=== PATIENT | male | born 1945 | race Caucasian/White ===

== ENCOUNTER 2023-02-09 06:21 | Emergency (ER) | payer OTHER ==
--- OUTSIDE RECORDS SUMMARY | 2023-02-09 15:08 | XMS REPORT | Continuity of Care Document ---
:1945 Author Organization [facility] Address [address] [place] [address] Care Team Providers Name Role Phone PCP, PATIENT DOES NOT HAVE A Primary Care Physician Unavaila CHANDAN Wilde Attending Clinician Unavailable Bernice Beckford RN Attending Clinician Unavailable Only, Ang Db Test Attending Clinician Unavailable Renee Olvera Attending Clinician RENEE MCKEE Attending Clinician Unavailable Jose Francisco Mae RN Attending Clinician Unavailable Terrie Early Attending Clinician TERRIE THOMSON Attending Clinician Unavailable Pcp, Patient Does Not Have A Attending Clinician [phone] Kain Phillips MD Attending Clinician KAIN PHILLIPS Attending Clinician Unavailable Payers Payer Name Policy Type Policy Number Effective Date Expiration Date S yuliana [facility] [id number] [facility] MED [id number] 2021 ADVANTAGE 00:00:00 CHOICE PPO Problems Condition Condition Condition Status Onset Resolution Last Treating Co mments Source Name Details Category Date Date Treatment Clinician Date [id number] Dysuria Problem Active [facility] Allergies, Adverse Reactions, Alerts Allergy Allergy Status Severity Reaction(s) Onset Inactive Treating Comm ents Source Name Type Date Date Clinician NO KNOWN Drug Active [facility] Class [facility] Social History Social Habit Start Date Stop Date Quantity Comments Source Sex Assigned At Com mon [facility] History of Tobacco Use Co mmon [facility] Exposure to SARS-CoV-2 Not sure Un [facility] Smoking Status Start Date Stop Date Source Unknown if ever smoked [facility] Never Smoker Common [facility] Medications Ordered Filled Start Stop Current Ordering Indication Dosage Frequency Signature Comments Components Source Medication Medication Date Date Medication? Clinician (SIG) Name Name Lisinopril Lisinopril No 1{table QD Lisinopril 10 MG 10 MG t} 10 MG Vital Signs Vital Name Observation Time Observation Value Comments Source height 2022-03-19 17:15:00 71 [in_i] [facility] weight 2022-03-19 17:15:00 170 [lb_av] [facility] temperature 2022-03-19 17:15:00 98 [degF] [facility] bmi 2022-03-19 17:15:00 23.71 kg/m2 [facility] oximetry 2022-03-19 17:15:00 99 % [facility] respiratory rate 2022-03-19 17:15:00 18 /min Comm on [facility] blood pressure 2022-03-19 17:15:00 195 mm[Hg] [facility] [place], [place] - systolic [facility] blood pressure 2022-03-19 17:15:00 95 mm[Hg] [facility] diastolic [facility] Procedures This patient has no known procedures. Encounters Start End Encounter Admission Attending Care Care Encounter Source Date/Time Date/Time Type Type Clinicians Facility Department ID 2022-03-19 Outpatient [facility] [id number] Common 17:06:01 [facility] 2022-03-13 Outpatient [facility]LMLC [facility] [id number] Common 15:22:01 [id number] [facility] 2021-08-21 Outpatient STLMLC [facility] [id number] Common 13:51:48 [id number] [facility] 2021-08-21 Outpatient [facility] [id number] Common 13:38:31 [id number] [facility] 2022-03-19 2022-03-19 [facility] [id number] Co mmon 00:00:00 00:00:00 VISIT Wagner ESTAB PT - [facility] LEVEL 2 [facility] 2021-10-11 2021-10-11 Outpatient Carlos GRIDER [facility] [id number] Univers 08:20:00 08:20:00 CHANDAN leyva [facility] 2021-09-25 2021-09-25 Outpatient Carlos GRIDER [facility] [id number] Univers 11:00:00 11:57:12 CHANDAN ity [facility] 2021-08-07 2021-08-07 Letter MARYLIN Beckford [id number] Univers 00:00:00 00:00:00 (Out) Bernice RODNEY [id number] it y [facility] [id number] Saurabh as [id number] [address] 2021-08-05 2021-08-05 Laboratory Only, Ang Db Test [facility] 1.2.8 [id number] [id number] Univers 12:45:00 13:00:00 Only [facility] [id number] ity [facility] [id number] Saurabh as JE?BLEA [id number] [address] MEDICAL OFFICE BUILDING 2021-08-05 2021-08-05 Outpatient R RYLEE [facility] [id number] Univers 12:45:00 12:45:00 RENEE leyva o f [facility] 2021-08-01 2021-08-01 Telephone MARYLIN Mae [id number] Univers 00:00:00 00:00:00 Jose Francisco RODNEY [id number] ity [facility] [id number] Saurabh as [id number] [address] 2021-07-30 2021-07-30 Laboratory Only, Ang Db Test [facility] 1.2.8 [id number] [id number] Univers 17:45:00 18:00:00 Only CristianojujuTerrie livingston [facility] [id number] ity of [place] [id number] Saurabh as JE?BLEA [id number] [address] MEDICAL OFFICE BUILDING 2021-07-30 2021-07-30 Outpatient R ALIX [facility] [id number] [facility] 17:45:00 17:45:00 [facility] 2021-03-27 2021-03-27 Telephone Pcp, MARYLIN [id number] Univers 00:00:00 00:00:00 Patient RASHAUN [id number] it y of [facility] [id number] [place] [id number] [address] 2021-03-25 2021-03-25 Laboratory Only, Ang Db Test [facility] 1.2.8 40.114 [id number] Univers 14:43:50 14:53:50 Only Alexandru Kain [facility] [id number] ity of [place] [id number] Saurabh as Je?Blea [id number] [address] Medical Office Building 2021-03-25 2021-03-25 Outpatient R ALEXANDRU [facility] [id number] Univers 14:40:00 14:40:00 KAIN [facility] Results This patient has no known results.
--- NOTE | 2023-02-09 16:26 | RAD REPORT ---
EXAM DESCRIPTION: RAD - Foot Left 3 View - 02/09/2023 4:18 pm CLINICAL HISTORY: Fell down steps, 2nd toe deformity COMPARISON: No comparisons FINDINGS: There is a dislocation present involving the second toe DIP joint. Diffuse osteopenia. No acute fractures seen.
--- NOTE | 2023-02-09 16:43 | EDPHYS ---
Physician Documentation [facility] Name: Aditya Villatoro Age: 77 yrs Sex: Male : 1945 Arrival Date: 02/09/2023 Time: 06:21 Bed 13 Private MD: ED Physician Shailesh Ferguson HPI: 02/09 07:54 This 77 yrs old Male presents to ER via Ambulatory with complaints of Toe Injury. rn 07:54 The patient presents with a deformity, an injury, pain. The complaints affect the left rn foot. Onset: The symptoms/episode began/occurred this morning. Modifying factors: The symptoms are alleviated by nothing, the symptoms are aggravated by weight bearing, movement. Severity of symptoms: At their worst the symptoms were mild, in the emergency department the symptoms are unchanged. The patient has not experienced similar symptoms in the past. The patient has not recently seen a physician. Pt reports mis-judged steps, missed a step and has left foot injury and pain, mainly to left 2nd toe. Denies any other injury. Ambulatory. . Historical: - Allergies: 07:13 No Known Allergies; as6 - PMHx: 07:13 Hypertensive disorder; Seizure; as6 - Immunization history:: Adult Immunizations up to date. - Social history:: Smoking status: Patient denies any tobacco usage or history of. - Family history:: not pertinent. - Hospitalizations: : No recent hospitalization is reported. ROS: 07:54 Constitutional: Negative for fever, chills, and weight loss, MS/Extremity: + injury and rn deformity to left 2nd toe Skin: Negative for injury, rash, and discoloration. Exam: 07:54 Constitutional: This is a well developed, well nourished patient who is awake, alert, rn and in no acute distress. MS/ Extremity: Pulses equal, no cyanosis. Neurovascular intact. + deformity to distal left 2nd toe with lateral deviation, no open wound, no ecchymosis, no cyanosis. No tenderness and FROM of left foot/ankle/knee/hip. Vital Signs: 07:16 BP 192 / 83; Pulse 55; Resp 16; Pulse Ox 100% on R/A; Pain 3/10; ll1 08:10 Temp 97(TE); ll1 07:16 Pain Scale: Adult ll1 Procedures: 08:17 Reduction: of the left second toe, distal phalanx, using traction, manipulation, rn Immobilized with manan tape. Patient tolerated well. Normal alignment and decreased pain following reduction, tolerated well. MDM: 07:02 Patient medically screened. rn 08:18 ED course: Offered patient digital block for reduction, declines, tells me "just do it rn fast". Tolerated reduction well. Decreased swelling and pain, normal alignment. . 08:38 Differential diagnosis: fracture, sprain, dislocation. Data reviewed: vital signs, rn nurses notes, radiologic studies, plain films, and as a result, I will discharge patient. Independent interpretation of the following test(s) in the Emergency Department X-Ray: My interpretation is Dislocation of left 2nd toe, distal phalanx per my interpretation. Counseling: I had a detailed discussion with the patient and/or guardian regarding: the historical points, exam findings, and any diagnostic results supporting the discharge/admit diagnosis, radiology results, the need for outpatient follow up, to return to the emergency department if symptoms worsen or persist or if there are any questions or concerns that arise at home. Response to treatment: the patient's symptoms have markedly improved after treatment, and as a result, I will discharge patient. 02/09 08:38 Order name: Splint: manan tape left 2nd toe to left 3rd toe; Complete Time: 08:54 rn Administered Medications: No medications were administered Disposition Summary: 02/09/23 08:39 Discharge Ordered Location: Home rn Problem: new rn Symptoms: have improved rn Condition: Stable rn Diagnosis - Dislocation of interphalangeal joint of left lesser toe(s), initial encounter - rn distal phalanx Followup: rn - With: Daniel Doyle MD - When: As needed - Reason: Recheck today's complaints, Re-evaluation by your physician Discharge Instructions: - Discharge Summary Sheet rn - Toe Dislocation rn Forms: - Medication Reconciliation Form rn - Thank You Letter rn - Antibiotic legal internship - Prescription Opioid Use rn - Patient Portal Instructions rn Prescriptions: - Tramadol 50 mg Oral Tablet - take 1 tablet by ORAL route every 8 hours as needed; 12 tablet; Refills: 0, rn Product Selection Permitted Signatures: Shailesh Ferguson MD MD rn Slawson, Ashby, RN RN as6 Corrections: (The following items were deleted from the chart) 07:56 07:54 Constitutional: This is a well developed, well nourished patient who is awake, rn alert, and in no acute distress. MS/ Extremity: Pulses equal, no cyanosis. Neurovascular intact. + deformity to distal left 2nd toe with lateral deviation, no open wound, no ecchymosis, no cyanosis rn
--- NOTE | 2023-02-09 16:43 | ER ---
Nurse's Notes [facility] Name: Aditya Villatoro Age: 77 yrs Sex: Male : 1945 Arrival Date: 02/09/2023 Time: 06:21 Bed 13 Private MD: Diagnosis: Dislocation of interphalangeal joint of left lesser toe(s), initial encounter-distal phalanx Presentation: 02/09 07:13 Onset of symptoms was February 09, 2023. as6 07:13 Acuity: PRITI 4 as6 07:13 Ebola Screen: Patient denies travel to an Ebola-affected area in the 21 days before as6 illness onset. 07:13 Method Of Arrival: Ambulatory as6 07:16 Chief complaint: Patient states: L foot 3rd digit pain/swelling. s/p hitting on stairs ll1 at 6 AM. Fell on knee also, no head injury. Coronavirus screen: Client denies travel out of the [place] in the last 14 days. At this time, the client does not indicate any symptoms associated with coronavirus-19. Initial Sepsis Screen: Does the patient meet any 2 criteria? No. Patient's initial sepsis screen is negative. Does the patient have a suspected source of infection? Yes: Bone or joint infection. Risk Assessment: Do you want to hurt yourself or someone else? Patient reports no desire to harm self or others. Triage Assessment: 07:19 General: Appears uncomfortable, Behavior is calm, cooperative, appropriate for age. ll1 Pain: Complains of pain in left foot Pain currently is 3 out of 10 on a pain scale. Quality of pain is described as aching, throbbing. Musculoskeletal: Circulation, motion, and sensation intact. Capillary refill < 3 seconds, Bony deformity noted of L foot 3rd digit. Injury Description: Bruise sustained to L foot 3rd digit. Historical: - Allergies: 07:13 No Known Allergies; as6 - PMHx: 07:13 Hypertensive disorder; Seizure; as6 - Immunization history:: Adult Immunizations up to date. - Social history:: Smoking status: Patient denies any tobacco usage or history of. - Family history:: not pertinent. - Hospitalizations: : No recent hospitalization is reported. Screenin:40 [facility] ED Fall Risk Assessment (Adult) History of falling in the last 3 months, ll1 including since admission Yes- single mechanical fall (1 pt) Score/Fall Risk Level 0 - 2 = Low Risk Oriented to surroundings, Maintained a safe environment, Educated pt \T\ family on fall prevention, incl call for assistance when getting out of bed, Hourly rounding (assess needs \T\ fall precautionary measures) done. Abuse screen: Denies threats or abuse. Nutritional screening: No deficits noted. Tuberculosis screening: No symptoms or risk factors identified. Assessment: 08:10 Reassessment: No changes from previously documented assessment. Patient and/or family ll1 updated on plan of care and expected duration. Pain level reassessed. Patient is alert, oriented x 3, equal unlabored respirations, skin warm/dry/pink. 08:54 Reassessment: Patient states feeling better. Patient states symptoms have improved. db General: Appears in no apparent distress. comfortable, Behavior is calm, cooperative. Pain: Complains of pain in left foot. Vital Signs: 07:16 BP 192 / 83; Pulse 55; Resp 16; Pulse Ox 100% on R/A; Pain 3/10; ll1 08:10 Temp 97(TE); ll1 07:16 Pain Scale: Adult ll1 ED Course: 06:21 Patient arrived in ED. ag3 07:02 Shailesh Ferguson MD is Attending Physician. rn 07:13 Triage completed. as6 07:13 Arm band placed on Patient placed in an exam room, on a stretcher. as6 07:40 Patient has correct armband on for positive identification. Bed in low position. Call ll1 light in reach. Cardiac monitoring not applicable on this patient. 07:41 No provider procedures requiring assistance completed. ll1 07:41 Patient did not have IV access during this emergency room visit. ll1 08:38 Daniel Doyle MD is Referral Physician. rn 08:54 Kelli Lucia, ONEYDA is Primary Nurse. db 08:54 Provided Education on: Discharge. db 08:54 Maximino tape left foot. db Administered Medications: No medications were administered Medication: 07:41 VIS not applicable for this client. ll1 Outcome: 08:39 Discharge ordered by . rn 08:54 Discharged to home ambulatory. db 08:54 Condition: stable 08:54 Discharge instructions given to patient, Instructed on discharge instructions, follow up and referral plans. Prescriptions given X 1. 08:55 Patient left the ED. db Signatures: Shailesh Ferguson MD MD rn Simone, Isadora ag3 Maria Luz Mendez RN RN ll1 River Dempsey RN RN as6 Kelli Lucia RN RN db
[2023-02-09 18:39] VITALS: BP 192/83; O2SAT 100
[2023-02-09 18:40] VITALS: TEMP 97
== END 2023-02-09 08:55 | disposition home or self-care (01) ==
LOC: ER 06:21
PROC: 0SSQXZZ Reposition Left Toe Phalangeal Joint, External Approach (ICD-10-PCS; principal; 2023-02-09)
DX: S93.115A Dislocation of interphalangeal joint of left lesser toe(s), initial encounter (principal); W01.198A Fall on same level from slipping, tripping and stumbling with subsequent striking against other object, initial encounter; Y93.89 Activity, other specified; Y92.9 Unspecified place or not applicable; I10 Essential (primary) hypertension; R56.9 Unspecified convulsions
CPT/HCPCS: 99283